=== PATIENT | male | born 1940 | race Caucasian/White ===

== ENCOUNTER → 2022-03-12 | Outpatient (REF) | payer MEDICARE, OTHER ==
[2022-03-13 18:38] LABS: CREATININE, URINE 30.5 MG/DL; MALB URINE SIEMENS < 5.0 MG/L; MAU/CREAT RATIO 16.3 MCG/MG (0.0-30.0)
== END ==
LOC: M LAB REF 17:02
PROVIDERS: ATTEND Nurse Practitioner Family
DX: E11.65 Type 2 diabetes mellitus with hyperglycemia (principal)

== ENCOUNTER → 2025-03-11 | Outpatient (REF) | payer MEDICARE, OTHER, BC | LOC: M SFHCDERM 16:29 | PROVIDERS: ATTEND Physician Assistant | DX: D48.9 Neoplasm of uncertain behavior, unspecified (principal); C44.01 Basal cell carcinoma of skin of lip ==